=== PATIENT | male | born 1990 | race Caucasian/White ===

== ENCOUNTER 2016-06-11 19:12 | Emergency (ER) | payer MEDICAID ==
--- NOTE | 2016-06-11 20:23 | EDM.PDOC ---
ED HPI GI/ABDOMINAL - General Chief Complaint: Abdominal Pain Stated Complaint: HAS NOT BE ABLE TO EAT FOR OVER A WEEK Time Seen by Provider: 06/11/16 20:10 Source: Reports: Patient, RN notes reviewed History Limitations: Reports: No limitations - History of Present Illness INITIAL COMMENTS - FREE TEXT/NARRATIVE: 25-year-old gentleman presents emergency Department with a complaint of left upper quadrant pain he states he's had abdominal pain on and off for the last 5 or 6 days, pain will get very intense and then resolve he denies any diarrhea fever shortness of breath. Denies any abdominal surgeries,no history of diabetes mellitus as his blood sugar has not been in great control in the morning he usually runs about 350 sugars become controlled in the afternoon - Related Data Allergies/ADRs: Allergies Allergy/AdvReac Type Severity Reaction Status Date / Time amoxicillin Allergy Hives Verified 06/11/16 19:47 cephalexin monohydrate Allergy Swollen Verified 06/11/16 19:47 [From Keflex] Tongue Penicillins Allergy Hives Verified 06/11/16 19:47 Home Meds: Home Meds Insulin Detemir [Levemir Flextouch] 70 units SUBCUT BEDTIME 04/01/15 [History] Dextroamphetamine/Amphetamine [Adderall Xr 20 mg Capsule] 25 mg PO DAILY [History] Insulin Aspart [NovoLOG] 25 units SUBCUT TIDMEALS 06/11/16 [History] Lisinopril 5 mg PO DAILY 06/11/16 [History] Pravastatin [Pravachol] 10 mg PO BEDTIME 06/11/16 [History] SUMAtriptan Succinate [Imitrex] 100 mg PO BID PRN 06/11/16 [History] Past Medical History Cardiovascular History: Reports: Arrhythmia, High cholesterol Neurological History: Reports: Migraines, Neuropathy, diabetic Psychiatric History: Reports: ADHD, Anxiety Endocrine/Metabolic History: Reports: Diabetes, type I, Diabetes, type II - Infectious Disease History Infectious Disease History: Reports: Chicken pox Social & Family History - Tobacco Use Smoking Status *Q: Never Smoker - Caffeine Use Caffeine Use: Reports: Soda - Recreational Drug Use Recreational Drug Use: No Recreational Drug Type: Reports: Marijuana/Hashish Recreational Drug Use Frequency: Rarely ED ROS GENERAL - Review of Systems Review Of Systems: See Below Constitutional: Denies: fever, chills HEENT: Reports: No symptoms Respiratory: Reports: No Symptoms Cardiovascular: Reports: No symptoms GI/Abdominal: Reports: Abdominal pain, Flatus. Denies: Diarrhea, Nausea, Vomiting : Reports: no symptoms Musculoskeletal: Reports: no symptoms ED EXAM, GI/ABD - Physical Exam Exam: See Below Text/Narrative:: General:male, not in any distress, alert and oriented x3 HEENT: head is atraumatic normocephalic, eyes pupils equal round reactive to light and accommodation sclera clear no conjunctivitis appreciated. Ears tympanic membranes clear and nguyễn landmarks and light reflex are present bilaterally canals are clear. Nose no septal deviation, nares are clear, no blood present. Mouth mucosa is moist and pink no erythema or exudate noted in soft palate, tongue is midline uvula is midline, dentition is intact. Neck: Supple no thyromegaly no tracheal deviation. Nodes: Cervical nodes subclavicular nodes nontender no palpable lymphadenopathy noted. Lungs: clear to auscultation bilaterally with symmetrical respirations, no adventitious noise appreciated. CV: Regular rate and rhythm S1 and S2 appreciated no murmurs rubs or gallops noted. Abdomen: Soft, mild tenderness to palpation in the left upper quadrant, no palpable masses or organomegaly appreciated, no distention no guarding bowel sounds are present, Neuro: Cranial nerves II through XII grossly intact Skin: Warm and dry, intact Extremities: No lower extremity edema appreciated, Course - Vital Signs Last Recorded V/S: Last Vital Signs Temp 97.5 F 06/11/16 21:19 Pulse 78 06/11/16 23:01 Resp 20 06/11/16 23:01 BP 127/60 06/11/16 23:01 Pulse Ox 99 06/11/16 23:01 - Orders/Labs/Meds Orders: Active Orders 24 hr Category Date Time Status Peripheral IV Care [RC] . DIRECTED Care 06/11/16 21:41 Active Abdomen Pelvis w Cont [CT] Stat Exams 06/11/16 21:41 Taken Sodium Chloride 0.9% [Normal Saline] 1,000 ml Med 06/11/16 21:45 Active IV ASDIRECTED Sodium Chloride 0.9% [Saline Flush] Med 06/11/16 21:41 Active 10 ml FLUSH ASDIRECTED PRN Peripheral IV Insertion Adult [OM.PC] Urgent Oth 06/11/16 21:41 Ordered Medication Orders Sodium Chloride (Normal Saline) 1,000 mls @ 999 mls/hr IV ASDIRECTED SHUN Last Admin: 06/11/16 21:48 Dose: 999 mls/hr Sodium Chloride (Saline Flush) 10 ml FLUSH ASDIRECTED PRN PRN Reason: Keep Vein Open Last Admin: 06/11/16 21:48 Dose: 10 ml Labs: Laboratory Tests 06/11/16 06/11/16 06/11/16 Range/Units 20:32 20:32 20:32 WBC 6.8 (4.5-11.0) K/uL RBC 5.41 (4.30-5.90) M/uL Hgb 15.7 H (12.0-15.0) g/dL Hct 42.3 (40.0-54.0) % MCV 78 L (80-98) fL MCH 29 (27-31) pg MCHC 37 H (32-36) % Plt Count 200 (150-400) K/uL Add Manual Diff Yes Neutrophils % (Manual) 44 (36-66) % Band Neutrophils % 5 (5-11) % Lymphocytes % (Manual) 44 (24-44) % Monocytes % (Manual) 7 H (2-6) % Polychromasia Sodium 137 L (140-148) mmol/L Potassium 4.0 (3.6-5.2) mmol/L Chloride 98 L (100-108) mmol/L Carbon Dioxide 28 (21-32) mmol/L Anion Gap 15.0 H (5.0-14.0) mmol/L BUN 17 (7-18) mg/dL Creatinine 1.0 (0.8-1.3) mg/dL Est Cr Clr Drug Dosing 154.67 mL/min Estimated GFR (MDRD) > 60 (>60) Glucose 345 H (74-106) mg/dL Lactic Acid 1.3 (0.4-2.0) mmol/L Calcium 9.0 (8.5-10.1) mg/dL Total Bilirubin 0.9 (0.2-1.0) mg/dL AST 20 (15-37) U/L ALT 46 (12-78) U/L Alkaline Phosphatase 62 (46-116) U/L Total Protein 7.4 (6.4-8.2) g/dL Albumin 3.9 (3.4-5.0) g/dL Globulin 3.5 (2.3-3.5) g/dL Albumin/Globulin Ratio 1.1 L (1.2-2.2) Lipase 72 L (73-393) U/L Urine Color Urine Appearance Urine pH (4.5-8.0) Ur Specific [place] (1.008-1.030) Urine Protein (NEGATIVE) mg/dL Urine Glucose (UA) (NEGATIVE) mg/dL Urine Ketones (NEGATIVE) mg/dL Urine Occult Blood (NEGATIVE) Urine Nitrite (NEGAITVE) Urine Bilirubin (NEGATIVE) Urine Urobilinogen (NORMAL) mg/dL Ur Leukocyte Esterase (NEGATIVE) Urine RBC (0-5) Urine WBC (0-5) Ur Epithelial Cells Amorphous Sediment Urine Bacteria Urine Mucus 06/11/16 Range/Units 21:53 WBC (4.5-11.0) K/uL RBC (4.30-5.90) M/uL Hgb (12.0-15.0) g/dL Hct (40.0-54.0) % MCV (80-98) fL MCH (27-31) pg MCHC (32-36) % Plt Count (150-400) K/uL Add Manual Diff Neutrophils % (Manual) (36-66) % Band Neutrophils % (5-11) % Lymphocytes % (Manual) (24-44) % Monocytes % (Manual) (2-6) % Polychromasia Sodium (140-148) mmol/L Potassium (3.6-5.2) mmol/L Chloride (100-108) mmol/L Carbon Dioxide (21-32) mmol/L Anion Gap (5.0-14.0) mmol/L BUN (7-18) mg/dL Creatinine (0.8-1.3) mg/dL Est Cr Clr Drug Dosing mL/min Estimated GFR (MDRD) (>60) Glucose (74-106) mg/dL Lactic Acid (0.4-2.0) mmol/L Calcium (8.5-10.1) mg/dL Total Bilirubin (0.2-1.0) mg/dL AST (15-37) U/L ALT (12-78) U/L Alkaline Phosphatase (46-116) U/L Total Protein (6.4-8.2) g/dL Albumin (3.4-5.0) g/dL Globulin (2.3-3.5) g/dL Albumin/Globulin Ratio (1.2-2.2) Lipase (73-393) U/L Urine Color Yellow Urine Appearance Clear Urine pH 5.0 (4.5-8.0) Ur Specific [place] 1.020 (1.008-1.030) Urine Protein 30 H (NEGATIVE) mg/dL Urine Glucose (UA) 1000 H (NEGATIVE) mg/dL Urine Ketones 15 H (NEGATIVE) mg/dL Urine Occult Blood Negative (NEGATIVE) Urine Nitrite Negative (NEGAITVE) Urine Bilirubin Negative (NEGATIVE) Urine Urobilinogen Normal (NORMAL) mg/dL Ur Leukocyte Esterase Negative (NEGATIVE) Urine RBC Not seen (0-5) Urine WBC 0-5 (0-5) Ur Epithelial Cells Few Amorphous Sediment Not seen Urine Bacteria Few Urine Mucus Few Meds: Medications Generic Name Dose Route Start Last Admin Trade Name Misty PRN Reason Stop Dose Admin Sodium Chloride 1,000 mls @ 999 mls/hr 06/11/16 21:45 06/11/16 21:48 Normal Saline IV 999 mls/hr ASDIRECTED SHUN Administration Sodium Chloride 10 ml 06/11/16 21:41 06/11/16 21:48 Saline Flush FLUSH 10 ml ASDIRECTED PRN Administration Keep Vein Open Discontinued Medications Generic Name Dose Route Start Last Admin Trade Name Misty PRN Reason Stop Dose Admin Sodium Chloride 70 mls @ 3 mls/sec 06/11/16 22:25 06/11/16 22:39 Normal Saline IV 06/11/16 22:26 3 mls/sec ASDIRECTED ONE Administration Iopamidol 150 ml 06/11/16 22:25 06/11/16 22:39 Isovue-300 (61%) IV 06/11/16 22:26 150 ml . DIRECTED PRN Administration RADIOLOGY EXAM Sodium Chloride 10 ml 06/11/16 22:25 06/11/16 22:39 Saline Flush FLUSH 06/11/16 22:26 10 ml . DIRECTED PRN Administration [id number] EXAM Departure - Departure Time of Disposition: 01:14 Disposition: Home, Self-Care 01 Condition: good Clinical Impression: Abdominal pain Qualifiers: Abdominal location: left upper quadrant Qualified Code(s): R10.12 - Left upper quadrant pain Forms: ED Department Discharge Additional Instructions: try stopping the lisinopril for a couple of days to see if you have improvement in abdominal, Please followup with your primary care provider in 3-5 days if not better, please call return to the emergency department with worsening of symptoms. - My Orders Last 24 Hours: My Active Orders 06/11/16 21:41 Peripheral IV Care [RC] . DIRECTED Abdomen Pelvis w Cont [CT] Stat Sodium Chloride 0.9% [Saline Flush] 10 ml FLUSH ASDIRECTED PRN Peripheral IV Insertion Adult [OM.PC] Urgent 06/11/16 21:45 Sodium Chloride 0.9% [Normal Saline] 1,000 ml IV ASDIRECTED - Assessment/Plan Last 24 Hours: My Active Orders 06/11/16 21:41 Peripheral IV Care [RC] . DIRECTED Abdomen Pelvis w Cont [CT] Stat Sodium Chloride 0.9% [Saline Flush] 10 ml FLUSH ASDIRECTED PRN Peripheral IV Insertion Adult [OM.PC] Urgent 06/11/16 21:45 Sodium Chloride 0.9% [Normal Saline] 1,000 ml IV ASDIRECTED Plan: Assessment Acuity = acute Site and laterality = left upper quadrant abdominal pain Etiology = unclear etiology Manifestations = none Location of injury = home Lab values = CBC, CMP, urinalysis unremarkable except for blood glucose elevated at 245 is hyperglycemia, CT scan shows no acute process Plan I did review lab work and CT scan results with him he has recently started lisinopril he's been on the medication for 2 weeks abdominal pain is listed as a side effect, he is to try coming off the medication for a couple of days see if there's any improvement in his abdominal pain otherwise follow up with primary care in 3-5 days for reevaluation Patient was in agreement with the plan all questions were answered, they were instructed to return to the emergency department or call for worsening symptoms. This note was dictated using [employer] voice recognition software please call with any questions.
[2016-06-11] MEDS ORDERED: Sodium Chloride 0.9% 10 ML Syringe FLUSH PRN ×2 (21:41→22:25)
[2016-06-11] MEDS ORDERED: Sodium Chloride 0.9% 1,000 ML IV SCH (21:45)
[2016-06-11] MEDS ORDERED: Iopamidol 612 MG/ML 150 ML Bottle IV PRN (22:25)
[2016-06-11 23:02] VITALS: BP 127/60
== END 2016-06-12 01:22 | disposition home or self-care (01) ==
LOC: JP.ED 19:12
DX: R10.12 Left upper quadrant pain (principal); E78.00 Pure hypercholesterolemia, unspecified; E11.9 Type 2 diabetes mellitus without complications; Z79.4 Long term (current) use of insulin; Z79.899 Other long term (current) drug therapy; Z88.0 Allergy status to penicillin; Z88.1 Allergy status to other antibiotic agents
CPT/HCPCS: 36415; 74177; 80053; 81001; 83605; 83690; 85025; 96360; 96361; 99284; J7030; J7040; J7050

== ENCOUNTER 2017-02-06 07:15 | Emergency (ER) | payer BC, MEDICAID ==
[2017-02-06] MEDS ORDERED: Ketorolac 60 MG/2 ML SDV IM ONE (07:52)
[2017-02-06] MEDS ORDERED: Cyclobenzaprine 10 MG Tab PO ONE (07:53)
--- NOTE | 2017-02-06 07:54 | EDM.PDOC ---
ED HPI GENERAL MEDICAL PROBLEM - General Chief Complaint: Back Pain or Injury Stated Complaint: KIDNEY & RECTAL PAIN Time Seen by Provider: 02/06/17 07:54 Source of Information: Reports: Patient History Limitations: Reports: No Limitations - History of Present Illness INITIAL COMMENTS - FREE TEXT/NARRATIVE: pt arrived with pain over the left buttock and coming to the front and groin area. He has pain that extends back to the buttock. He has tingling in his toes. Onset: Other ( came on over the last 2 days. ) Duration: Day(s):, Getting Worse Location: Reports: Back Associated Symptoms: Reports: No Other Symptoms Left Leg Pain Score (Numeric/FACES): 7 - Related Data Allergies Allergy/AdvReac Type Severity Reaction Status Date / Time amoxicillin Allergy Hives Verified 02/06/17 07:28 cephalexin monohydrate Allergy Swollen Verified 02/06/17 07:28 [From Keflex] Tongue Penicillins Allergy Hives Verified 02/06/17 07:28 sucralose Allergy Hives Verified 02/06/17 07:29 [From Splenda (sucralose)] Home Meds: Home Meds Insulin Detemir [Levemir Flextouch] 70 units SUBCUT BEDTIME 04/01/15 [History] Insulin Aspart [NovoLOG] 25 units SUBCUT TIDMEALS 06/11/16 [History] SUMAtriptan Succinate [Imitrex] 100 mg PO BID PRN 06/11/16 [History] Past Medical History HEENT History: Reports: Impaired Vision Cardiovascular History: Reports: Arrhythmia, High Cholesterol Musculoskeletal History: Reports: Fracture Neurological History: Reports: Migraines, Neuropathy, Diabetic Psychiatric History: Reports: ADHD, Anxiety Endocrine/Metabolic History: Reports: Diabetes, Type I, Diabetes, Type II - Infectious Disease History Infectious Disease History: Reports: Chicken Pox Social & Family History - Tobacco Use Smoking Status *Q: Never Smoker - Caffeine Use Caffeine Use: Reports: Soda - Recreational Drug Use Recreational Drug Use: No Recreational Drug Type: Reports: Marijuana/Hashish Recreational Drug Use Frequency: Rarely ED ROS GENERAL - Review of Systems Review Of Systems: See Below Constitutional: Reports: No Symptoms HEENT: Reports: No Symptoms Respiratory: Reports: No Symptoms Cardiovascular: Reports: No Symptoms Endocrine: Reports: No Symptoms GI/Abdominal: Reports: No Symptoms : Reports: No Symptoms Musculoskeletal: Reports: Other (pain in the left buttock and down the left leg. He has pain around the rectum and severe pain in the ankle ) ED EXAM,LOWER BACK PAIN/INJURY - Physical Exam Exam: See Below Text/Narrative:: pt arrived with pain in the left buttock and in the left thigh area. It comes around to the front. He has pain in the left groin. He has pain by the left rectal area. Exam Limited By: No Limitations General Appearance: Alert, Anxious Ears: Normal TMs Nose: Normal Inspection Throat/Mouth: Normal Inspection Head: Atraumatic Neck: Normal Inspection Respiratory/Chest: No Respiratory Distress Cardiovascular: Regular Rate, Rhythm GI/Abdominal: Soft, Non-Tender (Male) Exam: Deferred Rectal (Males) Exam: Deferred, Other (pt ias not having rectal control problems. ) Back Exam: Normal Inspection Extremities: Normal Inspection Neurological: Alert Course - Vital Signs Last Recorded V/S: Last Vital Signs Temp 36.0 C 02/06/17 07:37 Pulse 83 02/06/17 07:37 Resp 16 02/06/17 07:37 BP 130/76 02/06/17 07:37 Pulse Ox 98 02/06/17 07:37 - Orders/Labs/Meds Labs: Laboratory Tests 02/06/17 02/06/17 02/06/17 Range/Units 10:10 10:10 10:35 WBC 6.8 (4.5-11.0) K/uL RBC 5.54 (4.30-5.90) M/uL Hgb 16.1 H (12.0-15.0) g/dL Hct 43.7 (40.0-54.0) % MCV 79 L (80-98) fL MCH 29 (27-31) pg MCHC 37 H (32-36) % Plt Count 200 (150-400) K/uL Neut % (Auto) 64 (36-66) % Lymph % (Auto) 26 (24-44) % [place] % (Auto) 8 H (2-6) % Eos % (Auto) 2 (2-4) % Baso % (Auto) 0 (0-1) % Sodium 138 L (140-148) mmol/L Potassium 4.4 (3.6-5.2) mmol/L Chloride 101 (100-108) mmol/L Carbon Dioxide 29 (21-32) mmol/L Anion Gap 12.4 (5.0-14.0) mmol/L BUN 14 (7-18) mg/dL Creatinine 1.1 (0.8-1.3) mg/dL Est Cr Clr Drug Dosing 139.39 mL/min Estimated GFR (MDRD) > 60 (>60) Glucose 369 H (74-106) mg/dL Calcium 8.8 (8.5-10.1) mg/dL Total Bilirubin 0.8 (0.2-1.0) mg/dL AST 14 L (15-37) U/L ALT 23 (12-78) U/L Alkaline Phosphatase 52 (46-116) U/L Total Protein 6.2 L (6.4-8.2) g/dL Albumin 3.5 (3.4-5.0) g/dL Globulin 2.7 (2.3-3.5) g/dL Albumin/Globulin Ratio 1.3 (1.2-2.2) Urine Color Yellow Urine Appearance Clear Urine pH 5.0 (4.5-8.0) Ur Specific [place] 1.015 (1.008-1.030) Urine Protein 30 H (NEGATIVE) mg/dL Urine Glucose (UA) 1000 H (NEGATIVE) mg/dL Urine Ketones Negative (NEGATIVE) mg/dL Urine Occult Blood Negative (NEGATIVE) Urine Nitrite Negative (NEGAITVE) Urine Bilirubin Negative (NEGATIVE) Urine Urobilinogen Normal (NORMAL) mg/dL Ur Leukocyte Esterase Negative (NEGATIVE) Urine RBC 0-5 (0-5) Urine WBC 0-5 (0-5) Ur Epithelial Cells Rare Amorphous Sediment Not seen Urine Bacteria Not seen Urine Mucus Not seen Meds: Medications Discontinued Medications Generic Name Dose Route Start Last Admin Trade Name Freq PRN Reason Stop Dose Admin Cyclobenzaprine HCl 10 mg 02/06/17 07:53 02/06/17 07:58 Flexeril PO 02/06/17 07:54 10 mg ONETIME ONE Administration Insulin Human Lispro 8 unit 02/06/17 16:30 Humalog SUBCUT BIDAC SHUN Insulin Human Regular 35 unit 02/06/17 09:05 02/06/17 09:47 Novolin R SUBCUT 02/06/17 09:06 35 units ONETIME ONE Administration Protocol Insulin Human Regular 8 unit 02/06/17 10:46 02/06/17 11:01 Novolin R SUBCUT 02/06/17 10:47 8 units ONETIME ONE Administration Protocol Insulin Human Regular 20 unit 02/06/17 11:52 Novolin R SUBCUT 02/06/17 11:53 ONETIME ONE Protocol Ketorolac Tromethamine 60 mg 02/06/17 07:52 02/06/17 07:58 Toradol IM 02/06/17 07:53 60 mg ONETIME ONE Administration Oxycodone/Acetaminophen 1 tab 02/06/17 11:15 02/06/17 11:32 Percocet 325-5 Mg PO 02/06/17 11:16 1 tab ONETIME ONE Administration - Re-Assessments/Exams Free Text/Narrative Re-Assessment/Exam: 02/06/17 10:41 pt had a lumbar spine--MRI which was neg for disc disease. He has not been controlling his sugars well. His bs was greater than 400. He Has known neuropathy in his left foot. He has the pain described above with a neg MRI. He needs to work hard to get control of his bs. 02/06/17 11:53 Pt had lunch and his bs is 429. He has had a total of 43 units of regular insulin and will add another 20 units of regular insulin subq. 02/06/17 12:04 pt needs close followup with his regular provider to get his diabetes under controlo Departure - Departure Time of Disposition: 11:00 Disposition: Home, Self-Care 01 Condition: Fair Clinical Impression: Hyperglycemia, Neuropathy - Discharge Information Referrals: PCP,None [Primary Care Provider] - Forms: ED Department Discharge Care Plan Goals: no work today, Pt needs to see his regular provider in [place]. He needs to get his bs under control to prevwnt further neuropathy. 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 gabapentin 300mg tid Heat or cold to the left buttock area.
--- NOTE | 2017-02-06 08:34 | CR ---
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 Patient is cleared for MRI.
[2017-02-06] MEDS ORDERED: Insulin Regular, Human 100 Units/ML 10 ML Vial SUBCUT ONE ×3 (09:05→11:52)
--- NOTE | 2017-02-06 09:50 | MR ---
Lumbar Spine Comp wo Cont INDICATION: pain in left leg. COMPARISON: None. FINDINGS: 5 lumbar type vertebral bodies are assumed. Normal T1 marrow signal. Conus medullaris lies in anatomic position. Vertebral body and disc space height is well-maintained. No neural foraminal, lateral recess, or spin al canal narrowing. Exam otherwise negative. IMPRESSION: Negative MRI of the lumbar spine.
[2017-02-06] MEDS ORDERED: Acetaminophen/oxyCODONE 325-5 MG Tab PO ONE (11:15)
[2017-02-06 12:04] VITALS: BP 103/46
[2017-02-06] MEDS ORDERED: Insulin Lispro 100 Units/ML 3 ML Vial SUBCUT SCH (16:30)
== END 2017-02-06 12:43 | disposition home or self-care (01) ==
LOC: JP.ED 07:15
DX: E11.65 Type 2 diabetes mellitus with hyperglycemia (principal); E11.40 Type 2 diabetes mellitus with diabetic neuropathy, unspecified; G43.909 Migraine, unspecified, not intractable, without status migrainosus; Z79.4 Long term (current) use of insulin; Z88.0 Allergy status to penicillin; Z88.1 Allergy status to other antibiotic agents
CPT/HCPCS: 36415; 70030; 72148; 80053; 81001; 82962; 85025; 96374; 99284; A9270; J1885

== ENCOUNTER 2017-02-14 03:27 | Emergency (ER) | payer BC, MEDICAID ==
[2017-02-14] MEDS ORDERED: Insulin Detemir 100 Units/ML 3 ML Pen SUBCUT ONE (04:06)
--- NOTE | 2017-02-14 04:26 | EDM.PDOC ---
ED HPI GENERAL MEDICAL PROBLEM - General Chief Complaint: Diabetic Complaint Stated Complaint: BLOOD SUGAR OFF Time Seen by Provider: 02/14/17 04:00 Source of Information: Reports: Patient History Limitations: Reports: No Limitations - History of Present Illness INITIAL COMMENTS - FREE TEXT/NARRATIVE: 26-year-old male who has been diabetic for the last several years is in with elevated glucose levels. He ran out of his Levemir 2 days ago. Yesterday his glucose was in the 70s, tonight however read as "high" so he took extra NovoLog. He has a frontal headache but no fever, no nausea or vomiting, no hyperventilation, no diarrhea. No cough or shortness of breath. In the past Dr. Lo at the clinic is been his physician but he didn't feel his diabetes was being treated seriously enough so he switched to a physician in [place]. He is having trouble getting appointments with this new physician and doesn't have transportation. Severity: Moderate Associated Symptoms: Reports: Headaches Generalized Pain Score (Numeric/FACES): 4 - Related Data Allergies Allergy/AdvReac Type Severity Reaction Status Date / Time amoxicillin Allergy Hives Verified 02/14/17 03:35 cephalexin monohydrate Allergy Swollen Verified 02/14/17 03:35 [From Keflex] Tongue Penicillins Allergy Hives Verified 02/14/17 03:35 sucralose Allergy Hives Verified 02/14/17 03:35 [From Splenda (sucralose)] Home Meds: Home Meds Insulin Detemir [Levemir Flextouch] 70 units SUBCUT BEDTIME 04/01/15 [History] Insulin Aspart [NovoLOG] 25 units SUBCUT TIDMEALS 06/11/16 [History] SUMAtriptan Succinate [Imitrex] 100 mg PO BID PRN 06/11/16 [History] Gabapentin [Neurontin] 300 mg PO TID 02/14/17 [History] Past Medical History HEENT History: Reports: Allergic Rhinitis, Impaired Vision Cardiovascular History: Reports: Arrhythmia, High Cholesterol Gastrointestinal History: Reports: Chronic Diarrhea, GERD Genitourinary History: Reports: UTI, Recurrent Musculoskeletal History: Reports: Fracture Neurological History: Reports: Concussion, Migraines, Neuropathy, Diabetic Psychiatric History: Reports: ADHD, Anxiety Endocrine/Metabolic History: Reports: Diabetes, Type I, Diabetes, Type II - Infectious Disease History Infectious Disease History: Reports: Chicken Pox Social & Family History - Tobacco Use Smoking Status *Q: Never Smoker - Caffeine Use Caffeine Use: Reports: Soda - Recreational Drug Use Recreational Drug Use: Yes Drug Use in Last 12 Months: No Recreational Drug Type: Reports: Marijuana/Hashish Recreational Drug Use Frequency: Rarely ED ROS GENERAL - Review of Systems Review Of Systems: See Below Constitutional: Denies: Fever, Chills, Malaise HEENT: Denies: Vision Change Respiratory: Denies: Shortness of Breath Cardiovascular: Denies: Chest Pain GI/Abdominal: Denies: Abdominal Pain : Reports: No Symptoms (Was placed on a medicine to protect his kidneys, head give him a stomachache so he stopped it) Neurological: Reports: Headache, Paresthesia (Feels he is developing some diabetic neuropathy, especially of the feet) ED EXAM GENERAL NO PERIP PULSE - Physical Exam Exam: See Below Exam Limited By: No Limitations General Appearance: Alert, No Apparent Distress, Other (Initially the patient was very nonchalant about the lack of care with his diabetes, but after it was impressed upon him the importance of caring for his diabetes he became tearful) Eye Exam: Bilateral Eye: EOMI, PERRL Respiratory/Chest: No Respiratory Distress, Lungs Clear Cardiovascular: Regular Rate, Rhythm GI/Abdominal: Soft Extremities: No: Pedal Edema Neurological: Alert, Oriented Psychiatric: Flat Affect, Tearful Skin Exam: Warm, Dry Course - Vital Signs Last Recorded V/S: Last Vital Signs Temp 97.7 F 02/14/17 03:46 Pulse 97 02/14/17 03:46 Resp 16 02/14/17 03:46 BP 145/91 H 02/14/17 03:46 Pulse Ox 99 02/14/17 03:46 - Orders/Labs/Meds Meds: Medications Discontinued Medications Generic Name Dose Route Start Last Admin Trade Name Freq PRN Reason Stop Dose Admin Insulin Detemir 50 unit 02/14/17 04:06 02/14/17 04:29 Levemir SUBCUT 02/14/17 04:07 50 units ONETIME ONE Administration - Re-Assessments/Exams Free Text/Narrative Re-Assessment/Exam: 02/14/17 04:23 [id number] glucose was obtained which was 260. Patient was given 50 units of Levemir subcutaneous and an additional 50 units to take tomorrow night. I also gave him a prescription so he can resume his 70 units of Levemir at night and strongly encouraged him to see Gregory Casillas for diabetic management by the end of the week. Departure - Departure Time of Disposition: 05:11 Disposition: Home, Self-Care 01 Condition: Good Clinical Impression: Hyperglycemia - Discharge Information Instructions: Tips for Eating Away From Home If You Have Diabetes, Diabetes and Sick Day Management, Basic Carbohydrate Counting for Diabetes Mellitus, Type 2 Diabetes Mellitus, Adult, [id number], Diabetes and Exercise Referrals: PCP,None [Primary Care Provider] - Forms: ED Department Discharge Care Plan Goals: Start documenting your glucose levels 3 times a day and the amount of NovoLog you are taking to cover. Resume your 70 units of Levemir at night, and call the clinic to see if Gregory Casillas can take care of your diabetes and hopefully see you by the end of the week. Return to the emergency room if worsening or concerns.
[2017-02-14 04:52] VITALS: BP 145/91
== END 2017-02-14 05:12 | disposition home or self-care (01) ==
LOC: JP.ED 03:27
DX: E11.65 Type 2 diabetes mellitus with hyperglycemia (principal); E11.40 Type 2 diabetes mellitus with diabetic neuropathy, unspecified; E78.00 Pure hypercholesterolemia, unspecified; Z79.4 Long term (current) use of insulin; Z88.1 Allergy status to other antibiotic agents; Z88.0 Allergy status to penicillin; Z91.09 Other allergy status, other than to drugs and biological substances
CPT/HCPCS: 82962; 99284; A9270

== ENCOUNTER 2017-05-10 18:53 | Emergency (ER) | payer BC, MEDICAID ==
[2017-05-10 19:51] VITALS: BP 147/87
[2017-05-10] MEDS ORDERED: Ketorolac 60 MG/2 ML SDV IM ONE (20:55)
--- NOTE | 2017-05-10 21:07 | EDM.PDOC ---
ED HPI GENERAL MEDICAL PROBLEM - General Chief Complaint: Back Pain or Injury Stated Complaint: SHARP PAIN IN BACK Time Seen by Provider: 05/10/17 19:25 Source of Information: Reports: Patient History Limitations: Reports: No Limitations - History of Present Illness INITIAL COMMENTS - FREE TEXT/NARRATIVE: Left buttocks and leg pain: This is a 26-year-old male presents to emergency room with complaints of left leg and buttocks pain. He reports was going to the bathroom having a bowel movement when he has sudden onset of pain in the left buttocks radiating down the left leg. This has been very painful for a few hours and is similar to a previous episode of sciatica. He is now here for evaluation. 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 Pain Score (Numeric/FACES): 6 - Related Data Allergies Allergy/AdvReac Type Severity Reaction Status Date / Time amoxicillin Allergy Hives Verified 05/10/17 20:00 cephalexin monohydrate Allergy Swollen Verified 05/10/17 20:00 [From Keflex] Tongue Penicillins Allergy Hives Verified 05/10/17 20:00 sucralose Allergy Hives Verified 05/10/17 20:00 [From Splenda (sucralose)] Home Meds: Home Meds Insulin Detemir [Levemir Flextouch] 70 units SUBCUT BEDTIME 04/01/15 [History] Insulin Aspart [NovoLOG] 0 - 33 units SUBCUT TIDMEALS 06/11/16 [History] SUMAtriptan Succinate [Imitrex] 100 mg PO BID PRN 06/11/16 [History] Past Medical History HEENT History: Reports: Allergic Rhinitis, Impaired Vision Cardiovascular History: Reports: Arrhythmia, High Cholesterol Gastrointestinal History: Reports: Chronic Diarrhea, GERD Genitourinary History: Reports: UTI, Recurrent Musculoskeletal History: Reports: Fracture Neurological History: Reports: Concussion, Migraines, Neuropathy, Diabetic Psychiatric History: Reports: ADHD, Anxiety Endocrine/Metabolic History: Reports: Diabetes, Type I, Diabetes, Type II - Infectious Disease History Infectious Disease History: Reports: Chicken Pox Social & Family History - Tobacco Use Smoking Status *Q: Current Some Day Smoker Years of Tobacco use: 10 Packs/Tins Daily: 0.1 - Caffeine Use Caffeine Use: Reports: Soda - Recreational Drug Use Recreational Drug Use: No Drug Use in Last 12 Months: No Recreational Drug Type: Reports: Marijuana/Hashish Recreational Drug Use Frequency: Rarely - Living Situation & Occupation Living situation: Reports: Single Occupation: Employed ED ROS GENERAL - Review of Systems Review Of Systems: See Below Constitutional: Reports: Other (Painful left Buttocks and leg.) HEENT: Reports: No Symptoms Respiratory: Reports: No Symptoms Cardiovascular: Reports: No Symptoms Endocrine: Reports: High Glucose, Other (Has diabetes type 2 with insulin management 4 years.) GI/Abdominal: Reports: No Symptoms : Reports: No Symptoms Musculoskeletal: Reports: Back Pain, Leg Pain Skin: Reports: No Symptoms Neurological: Reports: No Symptoms Psychiatric: Reports: No Symptoms Hematologic/Lymphatic: Reports: No Symptoms Immunologic: Reports: No Symptoms ED EXAM, GENERAL - Physical Exam Exam: See Below Exam Limited By: No Limitations General Appearance: Alert, WD/WN, No Apparent Distress Eye Exam: Bilateral Eye: Normal Inspection Ears: Normal External Exam Nose: Normal Inspection, Normal Mucosa, No Blood Throat/Mouth: Normal Inspection, Normal Lips, Normal Teeth, Normal Gums, Normal Oropharynx, Normal Voice, No Airway Compromise Head: Atraumatic, Normocephalic Neck: Normal Inspection, Supple, Non-Tender, Full Range of Motion Respiratory/Chest: No Respiratory Distress, Lungs Clear, Normal Breath Sounds, No Accessory Muscle Use, Chest Non-Tender Cardiovascular: Normal Peripheral Pulses, Regular Rate, Rhythm, No Edema, No Gallop, No JVD, No Murmur, No Rub GI/Abdominal: Normal Bowel Sounds, Soft, Non-Tender, No Organomegaly, No Distention, No Abnormal Bruit, No Mass, Other (No flank pain is noted) (Male) Exam: Deferred Rectal (Males) Exam: Deferred Back Exam: Normal Inspection, Full Range of Motion, Muscle Spasm (Muscles are tense and nodded to low back lumbar to sacral spine. Radiates to left Buttocks and 2 leg to ankle.) Extremities: Normal Inspection, Normal Range of Motion, No Pedal Edema, Leg Pain (Noted painful to anterior and posterior thigh.) Neurological: Alert, Oriented, Normal Cognition, Normal Gait, Normal Reflexes, No Motor/Sensory Deficits Psychiatric: Normal Affect, Normal Mood Skin Exam: Warm, Dry, Intact, Normal Color, No Rash Lymphatic: No Adenopathy Course - Vital Signs Last Recorded V/S: Last Vital Signs Temp 36.0 C 05/10/17 20:08 Pulse 90 05/10/17 20:08 Resp 16 05/10/17 20:08 BP 147/87 H 05/10/17 20:08 Pulse Ox 96 05/10/17 20:08 - Orders/Labs/Meds Labs: Laboratory Tests 05/10/17 Range/Units 20:23 Urine Color Yellow Urine Appearance Clear Urine pH 6.5 (4.5-8.0) Ur Specific [place] 1.015 (1.008-1.030) Urine Protein 30 H (NEGATIVE) mg/dL Urine Glucose (UA) 1000 H (NEGATIVE) mg/dL Urine Ketones 15 H (NEGATIVE) mg/dL Urine Occult Blood Negative (NEGATIVE) Urine Nitrite Negative (NEGAITVE) Urine Bilirubin Negative (NEGATIVE) Urine Urobilinogen Normal (NORMAL) mg/dL Ur Leukocyte Esterase Negative (NEGATIVE) Urine RBC 0-5 (0-5) Urine WBC 0-5 (0-5) Ur Epithelial Cells Rare Amorphous Sediment Not seen Urine Bacteria Not seen Urine Mucus Not seen Meds: Medications Discontinued Medications Generic Name Dose Route Start Last Admin Trade Name Freq PRN Reason Stop Dose Admin Ketorolac Tromethamine 60 mg 05/10/17 20:55 05/10/17 21:03 Toradol IM 05/10/17 20:56 60 mg ONETIME ONE Administration - Re-Assessments/Exams Free Text/Narrative Re-Assessment/Exam: 05/10/17 21:42 Even Toradol 60 mg in the emergency room, will plan to discharge home with scripts for oxycodone, Flexeril and Naprosyn. Advised no work for next 1-2 days avoid any bending lifting or twisting follow-up with primary care for recheck, sooner if not improved or symptoms worsen Departure - Departure Time of Disposition: 21:16 Disposition: Home, Self-Care 01 Condition: Good Clinical Impression: Acute sciatica - Discharge Information Instructions: Sciatica, [id number] Referrals: PCP,None [Primary Care Provider] - Forms: ED Department Discharge Care Plan Goals: left Sciatica -Toradol 60mg IM -Percocet 5-325mg; take 1 by mouth. Every 4-6 hours when necessary pain -Flexeril 10 mg 1 every 8 hours when necessary muscle spasm -Naproxen 500 mg 1 by mouth twice a day 2 days then when necessary every 12 hours Advised to rest, no lifting over 10 pounds, no bending, twisting, avoid prolonged standing or sitting. Please follow-up with primary care provider on Monday for recheck if not improved or worse sooner if symptoms worsen - Problem List & Annotations (1) Acute sciatica SNOMED Code(s): 313489112 Code(s): M54.30 - SCIATICA, UNSPECIFIED SIDE Status: Acute Priority: High - Problem List Review Problem List Initiated/Reviewed/Updated: Yes - Assessment/Plan Plan: left Sciatica -Toradol 60mg IM -Percocet 5-325mg; take 1 by mouth. Every 4-6 hours when necessary pain -Flexeril 10 mg 1 every 8 hours when necessary muscle spasm -Naproxen 500 mg 1 by mouth twice a day 2 days then when necessary every 12 hours Advised to rest, no lifting over 10 pounds, no bending, twisting, avoid prolonged standing or sitting. Please follow-up with primary care provider on Monday for recheck if not improved or worse sooner if symptoms worsen
== END 2017-05-10 21:16 | disposition home or self-care (01) ==
LOC: JP.ED 18:53
DX: M54.42 Lumbago with sciatica, left side (principal); E78.00 Pure hypercholesterolemia, unspecified; F17.210 Nicotine dependence, cigarettes, uncomplicated; Z88.1 Allergy status to other antibiotic agents; Z88.0 Allergy status to penicillin
CPT/HCPCS: 81001; 96372; 99284; J1885

== ENCOUNTER 2017-12-24 21:30 | Emergency (ER) | payer BC, MEDICAID ==
[2017-12-24 21:54] VITALS: BP 129/84
--- NOTE | 2017-12-24 22:31 | EDM.PDOC ---
ED HPI GENERAL MEDICAL PROBLEM - General Chief Complaint: Chest Pain Stated Complaint: HEART ISSUES Time Seen by Provider: 12/24/17 22:15 Source of Information: Reports: Patient, Old Records, RN History Limitations: Reports: No Limitations - History of Present Illness INITIAL COMMENTS - FREE TEXT/NARRATIVE: 27 yo male here with central chest pain tonight. Is getting better. Has been monitored for episodes of tachycardia and his cardiology appt is pending. Was told if he ever got chest pain to go to the ER. Denies SOB, nausea, or diaphoresis. Has a 4 yr history of DM. No self tx tonight. Onset: Today Onset Date: 12/24/17 Duration: Hour(s):, Improving Location: Reports: Chest Quality: Reports: Dull Severity: Mild Improves with: Reports: Other (time) Worsens with: Reports: None Context: Reports: Other (paroxysmal episodes of tachycardia, DM) Associated Symptoms: Reports: No Other Symptoms - Related Data Allergies Allergy/AdvReac Type Severity Reaction Status Date / Time amoxicillin Allergy Hives Verified 12/24/17 21:43 cephalexin monohydrate Allergy Swollen Verified 12/24/17 21:43 [From Keflex] Tongue Penicillins Allergy Hives Verified 12/24/17 21:43 sucralose Allergy Hives Verified 12/24/17 21:43 [From Splenda (sucralose)] Home Meds: Home Meds Insulin Detemir [Levemir Flextouch] 70 units SUBCUT BEDTIME 04/01/15 [History] Insulin Aspart [NovoLOG] 0 - 33 units SUBCUT TIDMEALS 06/11/16 [History] SUMAtriptan Succinate [Imitrex] 100 mg PO BID PRN 06/11/16 [History] Dulaglutide [Trulicity] 1 appful SUBCUT WEEKLY 12/24/17 [History] Insulin Aspart [NovoLOG] 12/24/17 [History] Insulin Glargine,Hum.Rec.Anlog [Toujeo Solostar] 12/24/17 [History] Rizatriptan Benzoate [Rizatriptan] 12/24/17 [History] Topiramate 12/24/17 [History] Past Medical History HEENT History: Reports: Allergic Rhinitis, Impaired Vision Cardiovascular History: Reports: Arrhythmia, High Cholesterol Gastrointestinal History: Reports: Chronic Diarrhea, GERD Genitourinary History: Reports: UTI, Recurrent Musculoskeletal History: Reports: Fracture Neurological History: Reports: Concussion, Migraines, Neuropathy, Diabetic Psychiatric History: Reports: ADHD, Anxiety Endocrine/Metabolic History: Reports: Diabetes, Type I, Diabetes, Type II - Infectious Disease History Infectious Disease History: Reports: Chicken Pox Social & Family History - Tobacco Use Smoking Status *Q: Never Smoker - Caffeine Use Caffeine Use: Reports: Soda - Living Situation & Occupation Living situation: Reports: Single Occupation: Employed ED ROS GENERAL - Review of Systems Review Of Systems: See Below Constitutional: Reports: No Symptoms HEENT: Reports: No Symptoms Respiratory: Reports: No Symptoms Cardiovascular: Reports: Chest Pain Endocrine: Reports: No Symptoms GI/Abdominal: Reports: No Symptoms : Reports: No Symptoms Musculoskeletal: Reports: No Symptoms Skin: Reports: No Symptoms Neurological: Reports: No Symptoms ED EXAM, GENERAL - Physical Exam Exam: See Below Exam Limited By: No Limitations General Appearance: Alert, WD/WN, No Apparent Distress Eye Exam: Bilateral Eye: Normal Inspection Ears: Normal External Exam, Normal Canal, Hearing Grossly Normal Ear Exam: Bilateral Ear: Auricle Normal, Canal Normal Nose: Normal Inspection, Normal Mucosa, No Blood Throat/Mouth: Normal Inspection, Normal Lips, Normal Voice, No Airway Compromise Head: Atraumatic, Normocephalic Neck: Normal Inspection Respiratory/Chest: No Respiratory Distress, Lungs Clear, Normal Breath Sounds, No Accessory Muscle Use Cardiovascular: Regular Rate, Rhythm, No Edema, Other (sternal tenderness present) GI/Abdominal: Normal Bowel Sounds, Soft, Non-Tender, No Distention Back Exam: Normal Inspection. No: CVA Tenderness (R), CVA Tenderness (L) Extremities: Normal Inspection, Normal Range of Motion, Non-Tender, No Pedal Edema Neurological: Alert, Oriented, CN II-XII Intact, Normal Cognition, No Motor/ Sensory Deficits Psychiatric: Normal Affect, Normal Mood Skin Exam: Warm, Dry, Intact, Normal Color, No Rash Lymphatic: No Adenopathy EKG INTERPRETATION EKG Date: 12/24/17 Time: 22:25 Rhythm: NSR [place]: Normal P-Wave: Present QRS: Normal ST-T: Normal QT: Normal Comparison: NA - No Prior EKG Course - Vital Signs Last Recorded V/S: Last Vital Signs Temp 36.0 C 12/24/17 21:53 Pulse 89 12/24/17 21:53 Resp 14 12/24/17 21:53 BP 129/84 12/24/17 21:53 Pulse Ox 97 12/24/17 21:53 - Orders/Labs/Meds Orders: Active Orders 24 hr Category Date Time Status Cardiac Monitoring [RC] .As Directed Care 12/24/17 22:18 Active EKG Documentation Completion [RC] ASDIRECTED Care 12/24/17 22:18 Active EKG 12 Lead [EK] Routine Ther 12/24/17 22:18 Ordered Departure - Departure Time of Disposition: 22:37 Disposition: Home, Self-Care 01 Condition: Good Clinical Impression: Acute costochondritis Instructions: Costochondritis, [id number] Referrals: Gregory Casillas NP [Primary Care Provider] - Forms: ED Department Discharge Additional Instructions: Ibuprofen 400 mg every 6 hrs with food as needed. F/U with cardiology as planned. Return here if worse. - My Orders Last 24 Hours: My Active Orders 12/24/17 22:18 Cardiac Monitoring [RC] .As Directed EKG Documentation Completion [RC] ASDIRECTED EKG 12 Lead [EK] Routine - Assessment/Plan Last 24 Hours: My Active Orders 12/24/17 22:18 Cardiac Monitoring [RC] .As Directed EKG Documentation Completion [RC] ASDIRECTED EKG 12 Lead [EK] Routine
== END 2017-12-24 22:47 | disposition home or self-care (01) ==
LOC: JP.ED 21:30
DX: M94.0 Chondrocostal junction syndrome [Tietze] (principal); E10.9 Type 1 diabetes mellitus without complications; E78.00 Pure hypercholesterolemia, unspecified; Z88.1 Allergy status to other antibiotic agents; Z88.0 Allergy status to penicillin; Z88.8 Allergy status to other drugs, medicaments and biological substances
CPT/HCPCS: 93005; 99284-25

== ENCOUNTER 2018-04-20 11:15 | Emergency (ER) | payer MEDICAID ==
[2018-04-20 11:31] VITALS: BP 133/76
--- NOTE | 2018-04-20 13:30 | EDM.PDOC ---
ED HPI GENERAL MEDICAL PROBLEM - General Chief Complaint: Cardiovascular Problem Stated Complaint: HEART PALIPATIONS Time Seen by Provider: 04/20/18 11:50 Source of Information: Reports: Patient History Limitations: Reports: No Limitations - History of Present Illness INITIAL COMMENTS - FREE TEXT/NARRATIVE: This young man had a cardiac ablation done about 3 days ago that was at [facility] in [place]. He has a history of recurrent SVT. That was shown on a monitor which had been placed clinic. Last night he had an episode of palpitations off-and-on lasting 10 minutes or so. Also had some vague pain in the chest for 10 or 15 minutes. Today there are no more palpitations but he has sort of a vague soreness in his chest he said especially when he rolls on his belly. Doesn't really hurt to breathe however he hasn't taken anything for the pain. He's taking Eliquis because he had an episode of atrial fibrillation requiring cardioversion at the time of his ablation Chest Pain Score (Numeric/FACES): 3 - Related Data Allergies Allergy/AdvReac Type Severity Reaction Status Date / Time amoxicillin Allergy Hives Verified 04/20/18 11:31 cephalexin monohydrate Allergy Swollen Verified 04/20/18 11:31 [From Keflex] Tongue Penicillins Allergy Hives Verified 04/20/18 11:31 sucralose Allergy Hives Verified 04/20/18 11:31 [From Splenda (sucralose)] Home Meds: Home Meds Insulin Aspart [NovoLOG] 0 - 33 units SUBCUT TIDMEALS 06/11/16 [History] Insulin Glargine,Hum.Rec.Anlog [Toujeo Solostar] 80 units SQ BEDTIME 12/24/17 [ History] Rizatriptan Benzoate [Rizatriptan] 1 tab PO ASDIRECTED PRN 12/24/17 [History] Topiramate 1 tab PO DAILY 01/16/18 [History] Past Medical History HEENT History: Reports: Allergic Rhinitis, Impaired Vision Cardiovascular History: Reports: Arrhythmia, High Cholesterol Gastrointestinal History: Reports: Chronic Diarrhea, GERD Genitourinary History: Reports: UTI, Recurrent Musculoskeletal History: Reports: Fracture Neurological History: Reports: Concussion, Migraines, Neuropathy, Diabetic Psychiatric History: Reports: ADHD, Anxiety Endocrine/Metabolic History: Reports: Diabetes, Type I, Diabetes, Type II, Obesity/BMI 30+ - Infectious Disease History Infectious Disease History: Reports: Chicken Pox - Past Surgical History Head Surgeries/Procedures: Reports: None HEENT Surgical History: Reports: None Cardiovascular Surgical History: Reports: Cardiac Ablation GI Surgical History: Reports: None Endocrine Surgical History: Reports: None Neurological Surgical History: Reports: None Musculoskeletal Surgical History: Reports: None Dermatological Surgical History: Reports: None Social & Family History - Family History Family Medical History: Noncontributory - Tobacco Use Smoking Status *Q: Former Smoker Used Tobacco, but Quit: Yes Month/Year Tobacco Last Used: 12/2017 - Caffeine Use Caffeine Use: Reports: Soda, Tea - Recreational Drug Use Recreational Drug Use: No - Living Situation & Occupation Living situation: Reports: Single Occupation: Employed ED ROS GENERAL - Review of Systems Review Of Systems: ROS reveals no pertinent complaints other than HPI. ED EXAM, GENERAL - Physical Exam Exam: See Below Exam Limited By: No Limitations General Appearance: Alert, WD/WN, No Apparent Distress Throat/Mouth: Normal Inspection Neck: Normal Inspection Respiratory/Chest: Lungs Clear Cardiovascular: Normal Peripheral Pulses, Regular Rate, Rhythm, No Murmur Extremities: Normal Inspection Course - Vital Signs Last Recorded V/S: Last Vital Signs Temp 35.3 C 04/20/18 11:30 Pulse 88 04/20/18 11:30 Resp 19 04/20/18 11:30 BP 133/76 04/20/18 11:30 Pulse Ox 98 04/20/18 11:30 - Orders/Labs/Meds Orders: Active Orders 24 hr Category Date Time Status EKG Documentation Completion [RC] ASDIRECTED Care 04/20/18 11:57 Active EKG 12 Lead [EK] Urgent Ther 04/20/18 11:57 Ordered - Re-Assessments/Exams Free Text/Narrative Re-Assessment/Exam: 04/20/18 14:10 EKG shows a normal sinus rhythm at 87 beats per minutes borderline left axis deviation normal ST and T waves Free Text/Narrative Re-Assessment/Exam: 04/20/18 14:11 The case was discussed with Ms. Dorsey, a nurse practitioner working with the air surveillance operator at [facility] in [place]. She recommended that he be placed on a monitor whether Holter monitor or ambulatory event monitor. She also recommended that if this pain seemed to be worsening that a limited echocardiogram would be indicated. I discussed this with Dr. Greenfield and he will see him in the clinic at 4 PM today. Departure - Departure Time of Disposition: 13:29 Disposition: Home, Self-Care 01 Condition: Fair Clinical Impression: Heart palpitations Instructions: Palpitations, [id number] Referrals: Gregory Casillas CONSULTANT [Primary Care Provider] - Forms: ED Department Discharge Additional Instructions: See Dr. Greenfield in clinic at 4 PM - My Orders Last 24 Hours: My Active Orders 04/20/18 11:57 EKG Documentation Completion [RC] ASDIRECTED EKG 12 Lead [EK] Urgent - Assessment/Plan Last 24 Hours: My Active Orders 04/20/18 11:57 EKG Documentation Completion [RC] ASDIRECTED EKG 12 Lead [EK] Urgent
== END 2018-04-20 13:36 | disposition home or self-care (01) ==
LOC: JP.ED 11:15
DX: R00.2 Palpitations (principal); E78.00 Pure hypercholesterolemia, unspecified; E10.40 Type 1 diabetes mellitus with diabetic neuropathy, unspecified; Z87.891 Personal history of nicotine dependence; Z88.1 Allergy status to other antibiotic agents; Z88.0 Allergy status to penicillin; Z88.8 Allergy status to other drugs, medicaments and biological substances; Z98.890 Other specified postprocedural states
CPT/HCPCS: 93005; 99285-25

== ENCOUNTER 2018-06-01 06:35 | Day surgery (SDC) | payer MEDICAID ==
[2018-06-01] MEDS ORDERED: Bupivacaine 0.5% 50 ML MDV ONE (06:51)
[2018-06-01] MEDS ORDERED: Lidocaine 1% with EPINEPHrine 1:100,000 50 ML MDV ONE (06:51)
[2018-06-01] MEDS ORDERED: Sodium Chloride 0.9% 1,000 ML IV SCH (07:30)
[2018-06-01] MEDS ORDERED: Clindamycin Phosphate 900 MG in Sodium Chloride 0.9% 100 ML IV ONE (08:00)
[2018-06-01] MEDS ORDERED: Ropivacaine 60 ML, Dexamethasone 8 MG, EPINEPHrine 0.4 MG, Sodium Chloride 0.9% 17.6 ML NERVRT SCH ×4 (08:45)
[2018-06-01] MEDS ORDERED: Midazolam 1 MG/ML 2 ML SDV ONE (09:15)
[2018-06-01] MEDS ORDERED: Propofol 200 MG/20 ML SDV ONE ×2 (09:15→09:20)
[2018-06-01] MEDS ORDERED: fentaNYL 100 MCG/2 ML SDV ONE (09:15)
[2018-06-01] MEDS ORDERED: hydrOXYzine HCl 100 MG/2 ML SDV IM ONE (09:23)
[2018-06-01] MEDS ORDERED: fentaNYL 100 MCG/2 ML SDV IVPUSH ONE (09:33)
[2018-06-01] MEDS ORDERED: Acetaminophen/HYDROcodone 325-10 MG Tab PO PRN (10:50)
[2018-06-01] MEDS ORDERED: Acetaminophen/HYDROcodone 325-5 MG Tab PO PRN (11:04)
[2018-06-01 11:17] VITALS: BP 137/76
--- NOTE | 2018-06-01 15:26 | OR ---
DATE OF PROCEDURE: 06/01/2018 PROCEDURE: Transversus abdominis plane blocks, bilaterally. COMPLICATION: None. PRINT CUTTER: None. INDICATIONS: Pain control for right inguinal hernia. RISKS: Risks, benefits, alternatives, and limitations including, but not limited to infection, bleeding, and injury to abdominal structures were explained to the patient who wished to proceed. PROCEDURE IN DETAIL: The patient was placed in supine position. The right side was addressed first. Transversus plane was readily identified and approximately 80% solution was injected under direct ultrasound guidance. Left side was then performed in same manner, same fashion, same technique, in the same sequence, using the same equipment, approximately 80% was injected on that side also. The patient tolerated the procedure well. Norberto Esquivel MD /[id number]
--- NOTE | 2018-06-01 15:38 | OR ---
DATE OF PROCEDURE: 06/01/2018 PROCEDURE: Right inguinal hernia repair, open. COMPLICATIONS: None. LAPEL STITCHER: None. ANESTHESIA: MAC. RISKS: Risks, benefits, alternatives, and limitations including, but not limited to infection, bleeding, perforation, and injury to blood vessels, testicles, intestines, and other risks not listed here were explained to the patient who wished to proceed. DESCRIPTION OF PROCEDURE: The patient was placed in supine position. A curvilinear incision was made in the standard fashion approximately 5 cm in size in proximity to the pubic bone. This was then carried down with electrocautery to the external oblique aponeurosis which was then opened with a 15 blade. Dissection was commenced. The cord structure was able to be isolated along with the hernia defect. It was noted to be a direct inguinal hernia. This was able to be reduced without difficulty. An extra-large plug and patch was then placed filling in approximately 1 cm locations. This was around the cord, but loosely approximated around the cord. This was stitched and approximated to the pubic symphysis also. This was then irrigated. The external oblique aponeurosis was closed with 3-0 Vicryl, subcutaneous tissues were closed with 4-0 Vicryl, and the skin was closed with 4-0 Vicryl. Dermabond was applied. The patient tolerated the procedure well. Norberto Esquivel MD /[id number]
== END 2018-06-01 12:02 | disposition home or self-care (01) ==
LOC: JP.SDS 06:35
PROVIDERS: ATTEND Surgery
DX: K40.90 Unilateral inguinal hernia, without obstruction or gangrene, not specified as recurrent (principal); E11.9 Type 2 diabetes mellitus without complications; Z79.4 Long term (current) use of insulin
CPT/HCPCS: 49505; 64488; A9270; C1781; J0171; J1100; J2250; J2704; J2795; J3010; J3410; J3490; J7030; J7050

== ENCOUNTER 2019-02-17 14:05 | Emergency (ER) | payer OTHER ==
[2019-02-17 14:30] VITALS: BP 141/93; PULSE 95
--- NOTE | 2019-02-17 14:57 | EDM.PDOC ---
ED HPI GENERAL MEDICAL PROBLEM - General Chief Complaint: ENT Problem Stated Complaint: MOUTH PAIN FROM TOOTH EXRACTION Time Seen by Provider: 02/17/19 14:40 Source of Information: Reports: Patient, Old Records History Limitations: Reports: No Limitations - History of Present Illness INITIAL COMMENTS - FREE TEXT/NARRATIVE: 28 yo male had several teeth extracted recently. Is taking ibuprofen. Was prescribed Tylenol #3 that was not sufficient so this was switched to hydrocodone which has also not been sufficient. He has had oxycodone in the past that made him itchy. His next appt with the dentist is on 02/25. Is taking clindamycin currently. No fever or facial swelling. 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: NSAIDS, Other (see below) (hydrocodone) - Related Data Allergies Allergy/AdvReac Type Severity Reaction Status Date / Time acetaminophen [From Percocet] Allergy Itching Verified 02/17/19 14:21 amoxicillin Allergy Hives Verified 02/17/19 14:21 cephalexin monohydrate Allergy Swollen Verified 02/17/19 14:21 [From Keflex] Tongue oxycodone Allergy Itching Verified 02/17/19 14:21 Penicillins Allergy Hives Verified 02/17/19 14:21 pravastatin Allergy Abdominal Verified 02/17/19 14:21 Pain sucralose Allergy Hives Verified 02/17/19 14:21 [From Splenda (sucralose)] Home Meds: Home Meds Insulin Aspart [NovoLOG] 0 - 33 units SUBCUT TIDMEALS 06/11/16 [History] Insulin Glargine,Hum.Rec.Anlog [Toujeo Solostar] 80 units SQ BEDTIME 12/24/17 [ History] Rizatriptan Benzoate [Rizatriptan] 1 tab PO ASDIRECTED PRN 12/24/17 [History] Dulaglutide [Trulicity] 0.75 mg SQ Q7D 05/31/18 [History] Gabapentin [Neurontin] 200 mg PO TID 05/31/18 [History] Clindamycin HCl 1 tab PO TID 02/17/19 [History] HYDROmorphone [Dilaudid] 2 mg PO Q4H PRN #10 tab 02/17/19 [Rx] Hydrocodone/Acetaminophen [Hydrocodon-Acetaminophen 5-325] 1 tab PO Q6HR PRN [History] metFORMIN [Glucophage] 1 tab PO DAILY 02/17/19 [History] Past Medical History HEENT History: Reports: Allergic Rhinitis, Impaired Vision Cardiovascular History: Reports: Arrhythmia, High Cholesterol, Other (See Below) Other Cardiovascular History: paroxysmal supraventricular tachycardia Gastrointestinal History: Reports: Chronic Diarrhea, GERD Genitourinary History: Reports: UTI, Recurrent Musculoskeletal History: Reports: Fracture Neurological History: Reports: Concussion, Migraines, Neuropathy, Diabetic Psychiatric History: Reports: ADHD, Anxiety Endocrine/Metabolic History: Reports: Diabetes, Type I, Diabetes, Type II, Obesity/BMI 30+ Hematologic History: Reports: Polycythemia Dermatologic History: Reports: Other (See Below) Other Dermatologic History: scabbed area on left calf - Infectious Disease History Infectious Disease History: Reports: Chicken Pox - Past Surgical History Head Surgeries/Procedures: Reports: None HEENT Surgical History: Reports: None Cardiovascular Surgical History: Reports: Cardiac Ablation GI Surgical History: Reports: None Endocrine Surgical History: Reports: None Neurological Surgical History: Reports: None Musculoskeletal Surgical History: Reports: None Dermatological Surgical History: Reports: None Social & Family History - Family History Family Medical History: Noncontributory - Tobacco Use Smoking Status *Q: Never Smoker - Caffeine Use Caffeine Use: Reports: Soda, Tea - Living Situation & Occupation Living situation: Reports: Single Occupation: Employed ED ROS ENT - Review of Systems Review Of Systems: Comprehensive ROS is negative, except as noted in HPI. HEENT: Reports: Dental Pain ED EXAM, ENT - Physical Exam Exam: See Below Exam Limited By: No Limitations General Appearance: Alert, WD/WN, No Apparent Distress Eye Exam: Bilateral Eye: Normal Inspection Ears: Normal External Exam, Normal Canal, Hearing Grossly Normal, Normal TMs Nose: Normal Inspection, No Blood Mouth/Throat: Normal Lips, Other (multiple recent dental extractions, sutures still in place. ). No: Normal Teeth Head: Atraumatic, Normocephalic. No: Facial Ecchymosis, Facial Swelling Neck: Normal Inspection, Supple, Non-Tender. No: Lymphadenopathy (R), Lymphadenopathy (L) Neurological: Alert, Oriented, CN II-XII Intact, Normal Cognition, No Motor/ Sensory Deficits Psychiatric: Normal Affect, Normal Mood Skin: Warm, Dry, Intact, Normal Color, No Rash Course - Vital Signs Last Recorded V/S: Last Vital Signs Temp 36.0 C 02/17/19 14:28 Pulse 95 02/17/19 14:28 Resp 14 02/17/19 14:28 BP 141/93 H 02/17/19 14:28 Pulse Ox 98 02/17/19 14:28 Departure - Departure Time of Disposition: 14:56 Disposition: Home, Self-Care 01 Condition: Fair Clinical Impression: Pain, dental - Discharge Information *PRESCRIPTION DRUG MONITORING PROGRAM REVIEWED*: No *COPY OF PRESCRIPTION DRUG MONITORING REPORT IN PATIENT YOLI: No Prescriptions: HYDROmorphone [Dilaudid] 2 mg PO Q4H PRN #10 tab PRN Reason: Pain Referrals: PCP,None [Primary Care Provider] - Additional Instructions: Substitute hydromorphone as directed for your hydrocodone. You may take acetaminophen with this AND ibuprofen. F/U this week with your family doctor if not getting adequate relief with this med or if you run out and can't get by with the other pain meds already prescribed. Stay on your clindamycin.
== END 2019-02-17 15:09 | disposition home or self-care (01) ==
LOC: JP.ED 14:05
DX: K08.89 Other specified disorders of teeth and supporting structures (principal); E78.00 Pure hypercholesterolemia, unspecified; E66.9 Obesity, unspecified; E10.40 Type 1 diabetes mellitus with diabetic neuropathy, unspecified; Z88.6 Allergy status to analgesic agent; Z88.0 Allergy status to penicillin; Z88.1 Allergy status to other antibiotic agents; Z88.8 Allergy status to other drugs, medicaments and biological substances; Z79.4 Long term (current) use of insulin; Z68.30 Body mass index [BMI] 30.0-30.9, adult
CPT/HCPCS: 99282

== ENCOUNTER 2019-08-10 12:13 | Emergency (ER) | payer OTHER ==
--- NOTE | 2019-08-10 12:56 | EDM.PDOC ---
ED HPI GENERAL MEDICAL PROBLEM - General Chief Complaint: Skin Complaint Stated Complaint: LT FOOT PAIN Time Seen by Provider: 08/10/19 12:40 Source of Information: Reports: Patient History Limitations: Reports: No Limitations - History of Present Illness Onset: Gradual Duration: Day(s): (4) Location: Reports: Lower Extremity, Left Quality: Reports: Burning Severity: Moderate Context: Reports: Other (The blister on the bottom of his foot and subsequently the foot became red swollen and painful) Associated Symptoms: Denies: Fever/Chills, Shortness of Breath - Related Data Allergies Allergy/AdvReac Type Severity Reaction Status Date / Time acetaminophen [From Percocet] Allergy Itching Verified 02/17/19 14:21 amoxicillin Allergy Hives Verified 02/17/19 14:21 cephalexin monohydrate Allergy Swollen Verified 02/17/19 14:21 [From Keflex] Tongue hydromorphone [From Dilaudid] Allergy Itching Verified 08/10/19 12:32 oxycodone Allergy Itching Verified 02/17/19 14:21 Penicillins Allergy Hives Verified 02/17/19 14:21 pravastatin Allergy Abdominal Verified 02/17/19 14:21 Pain sucralose Allergy Hives Verified 02/17/19 14:21 [From Splenda (sucralose)] Home Meds: Home Meds Insulin Aspart [NovoLOG] 0 - 33 units SUBCUT TIDMEALS 06/11/16 [History] Insulin Glargine,Hum.Rec.Anlog [Toujeo Solostar] 80 units SQ BEDTIME 12/24/17 [ History] Rizatriptan Benzoate [Rizatriptan] 1 tab PO ASDIRECTED PRN 12/24/17 [History] Gabapentin [Neurontin] 200 mg PO TID 05/31/18 [History] metFORMIN [Glucophage] 1 tab PO DAILY 02/17/19 [History] Doxycycline [Vibramycin] 100 mg PO BID 7 Days #14 cap 08/10/19 [Rx] Glimepiride 1 tab PO BID 08/10/19 [History] Past Medical History HEENT History: Reports: Allergic Rhinitis, Impaired Vision Cardiovascular History: Reports: Arrhythmia, High Cholesterol, Other (See Below) Other Cardiovascular History: paroxysmal supraventricular tachycardia Gastrointestinal History: Reports: Chronic Diarrhea, GERD Genitourinary History: Reports: UTI, Recurrent Musculoskeletal History: Reports: Fracture Neurological History: Reports: Concussion, Migraines, Neuropathy, Diabetic Psychiatric History: Reports: ADHD, Anxiety Endocrine/Metabolic History: Reports: Diabetes, Type I, Diabetes, Type II, Obesity/BMI 30+ Hematologic History: Reports: Polycythemia Dermatologic History: Reports: Other (See Below) Other Dermatologic History: scabbed area on left calf - Infectious Disease History Infectious Disease History: Reports: Chicken Pox - Past Surgical History Head Surgeries/Procedures: Reports: None HEENT Surgical History: Reports: None Cardiovascular Surgical History: Reports: Cardiac Ablation GI Surgical History: Reports: None Endocrine Surgical History: Reports: None Neurological Surgical History: Reports: None Musculoskeletal Surgical History: Reports: None Dermatological Surgical History: Reports: None Social & Family History - Family History Family Medical History: Noncontributory - Caffeine Use Caffeine Use: Reports: Soda, Tea - Living Situation & Occupation Living situation: Reports: Single Occupation: Employed ED ROS GENERAL - Review of Systems Review Of Systems: See Below Constitutional: Denies: Fever, Chills, Fatigue, Night Sweats Respiratory: Reports: No Symptoms Cardiovascular: Reports: No Symptoms Neurological: Reports: No Symptoms ED EXAM, SKIN/RASH Exam: See Below Exam Limited By: No Limitations General Appearance: Alert, WD/WN, No Apparent Distress Respiratory/Chest: No Respiratory Distress Back Exam: Full Range of Motion Extremities: Other (Dorsal surface of left foot reveals a small wound consistent with a blister that the patient "popped" next to the ball of the foot. In general the foot is slightly swollen with erythema extending up to the arch. It is warm to touch. There is no draining wound.) Neurological: Alert, Oriented Associated features: Warmth, Tenderness, Swelling, Inflammation Course - Vital Signs Last Recorded V/S: Last Vital Signs Temp 36.8 C 08/10/19 12:39 Pulse 99 08/10/19 12:39 Resp 17 08/10/19 12:39 BP 127/77 08/10/19 12:39 Pulse Ox 100 08/10/19 12:39 Departure - Departure Time of Disposition: 12:50 Disposition: Home, Self-Care 01 Condition: Good Clinical Impression: Cellulitis Qualifiers: Site of cellulitis: extremity Site of cellulitis of extremity: lower extremity Laterality: left Qualified Code(s): L03.116 - Cellulitis of left lower limb - Discharge Information Prescriptions: Doxycycline [Vibramycin] 100 mg PO BID 7 Days #14 cap Instructions: Cellulitis, Adult Referrals: Luz Acevedo PA-C [Primary Care Provider] - Forms: ED Department Discharge Additional Instructions: Start doxycycline as soon as possible. Try to rest the involved foot for the next 2 days. Warm soaks of the foot at least 3 times a day Sepsis Event Note - Evaluation Sepsis Screening Result: No Definite Risk - Focused Exam Vital Signs: Vital Signs Temp Pulse Resp BP Pulse Ox 08/10/19 12:39 36.8 C 99 17 127/77 100 08/10/19 12:23 36.8 C 99 17 127/77 100 Date Exam was Performed: 08/10/19 Time Exam was Performed: 12:58
== END 2019-08-10 13:07 | disposition home or self-care (01) ==
LOC: JP.ED 12:13
CPT/HCPCS: 99283

== ENCOUNTER 2022-02-18 23:43 | Emergency (ER) | payer SELFPAY ==
[2022-02-19 00:02] VITALS: BP 138/73; PULSE 100
[2022-02-19] MEDS ORDERED: Ketorolac 30 MG/ML SDV IM ONE (00:09)
[2022-02-19] MEDS ORDERED: Methocarbamol 500 MG Tab PO ONE (00:40)
[2022-02-19] MEDS ORDERED: Lidocaine 5% 700 MG Patch TRDERM ONE (00:40)
== END 2022-02-19 01:36 | disposition home or self-care (01) ==
LOC: JP.ED 23:43
DX: M54.50 Low back pain, unspecified (principal); S39.012D Strain of muscle, fascia and tendon of lower back, subsequent encounter; E78.00 Pure hypercholesterolemia, unspecified; E11.9 Type 2 diabetes mellitus without complications; E66.9 Obesity, unspecified; Z68.33 Body mass index [BMI] 33.0-33.9, adult; Z88.6 Allergy status to analgesic agent; Z88.0 Allergy status to penicillin; Z88.5 Allergy status to narcotic agent; Z88.8 Allergy status to other drugs, medicaments and biological substances; Z79.899 Other long term (current) drug therapy; X50.0XXA Overexertion from strenuous movement or load, initial encounter; Y92.69 Other specified industrial and construction area as the place of occurrence of the external cause
CPT/HCPCS: 72100; 96372; 99283; A9270; J1885

== ENCOUNTER 2022-03-01 03:52 | Emergency (ER) | payer SELFPAY ==
[2022-03-01 05:34] VITALS: BP 145/90; PULSE 75
== END 2022-03-01 05:33 | disposition home or self-care (01) ==
LOC: JP.ED 03:52
DX: R00.2 Palpitations (principal); R07.89 Other chest pain; E78.00 Pure hypercholesterolemia, unspecified; K21.9 Gastro-esophageal reflux disease without esophagitis; E11.40 Type 2 diabetes mellitus with diabetic neuropathy, unspecified; E66.9 Obesity, unspecified; Z68.35 Body mass index [BMI] 35.0-35.9, adult; Z87.891 Personal history of nicotine dependence; Z88.0 Allergy status to penicillin; Z88.6 Allergy status to analgesic agent; Z88.1 Allergy status to other antibiotic agents; Z88.5 Allergy status to narcotic agent; Z88.8 Allergy status to other drugs, medicaments and biological substances; Z79.4 Long term (current) use of insulin; Z79.899 Other long term (current) drug therapy
CPT/HCPCS: 93005; 99284

== ENCOUNTER 2022-10-30 09:09 | Emergency (ER) | payer MEDICAID ==
[2022-10-30 10:03] VITALS: BP 157/93; PULSE 110
== END 2022-10-30 11:44 | disposition home or self-care (01) ==
LOC: JP.ED 09:09
DX: L03.211 Cellulitis of face (principal); E11.9 Type 2 diabetes mellitus without complications; E66.9 Obesity, unspecified; K21.9 Gastro-esophageal reflux disease without esophagitis; Z68.34 Body mass index [BMI] 34.0-34.9, adult; E78.00 Pure hypercholesterolemia, unspecified; Z86.16 Personal history of COVID-19; Z88.0 Allergy status to penicillin; Z88.1 Allergy status to other antibiotic agents; Z88.5 Allergy status to narcotic agent; Z88.8 Allergy status to other drugs, medicaments and biological substances; Z79.899 Other long term (current) drug therapy
CPT/HCPCS: 99283

== ENCOUNTER 2022-12-23 06:53 | Emergency (ER) | payer MEDICAID ==
[2022-12-23 07:14] VITALS: BP 119/83; PULSE 88
[2022-12-23 07:24] LABS: HEMATOCRIT 49.9 % (38.4-49.7); MEAN CORPUSCULAR HEMOGLOBIN 29.4 pg (31.6-35.5); MEAN CORPUSCULAR HGB CONC 36.5 g/dL (31.6-35.5); MEAN CORPUSCULAR VOLUME 80.5 fL (81.4-99.0); RED BLOOD CELL COUNT 6.2 M/uL (4.14-5.76); WHITE BLOOD CELL COUNT,WBC 6.8 K/uL (3.2-11.0)
[2022-12-23 07:25] LABS: CARBOXYHEMOGLOBIN 2.1 % (0.0-1.6); METHEMOGLOBIN 0.7 %; O2 SATURATION VENOUS 31.6; OXYHEMOGLOBIN 30.7 %; PCO2 VENOUS 51.5 mm/Hg; TOTAL HEMOGLOBIN 19.1 g/dL (13.5-18.0)
[2022-12-23 07:27] LABS: BASE EXCESS VENOUS 4.4 mm/L; BICARBONATE,VENOUS 30.6 mmol/L; PH,VENOUS 7.391 (7.350-7.450)
[2022-12-23 07:29] LABS: HEMOGLOBIN 18.2 g/dL (12.9-16.9)
[2022-12-23 07:45] LABS: APPEARANCE,URINE CLEAR (CLEAR); BILIRUBIN,URINE NEGATIVE (NEGATIVE); COLOR,URINE YELLOW (YELLOW); GLUCOSE,URINE 500 mg/dL (NEGATIVE); KETONES,URINE TRACE mg/dL (NEGATIVE); LEUKOCYTE ESTERASE,URINE NEGATIVE (NEGATIVE); NITRITE,URINE NEGATIVE (NEGATIVE); OCCULT BLOOD,URINE TRACE-LYSED (NEGATIVE); PH,URINE 5.5 (5.0-8.0); PROTEIN,URINE >=300 mg/dL (NEGATIVE); UROBILINOGEN,URINE 0.2 EU/dL (0.2-1.0)
[2022-12-23 07:47] LABS: A/G RATIO 1.2 (1.2-2.2); ALANINE AMINOTRANSFERASE,ALT 30 U/L (12-78); ALBUMIN 4.4 g/dL (3.4-5.0); ALKALINE PHOSPHATASE 76 U/L (46-116); ASPARTATE AMNIOTRANSFERASE,AST 15 U/L (15-37); BILIRUBIN TOTAL 0.9 mg/dL (0.2-1.0); BLOOD UREA NITROGEN,BUN 22 mg/dL (7-18); CALCIUM 9.6 mg/dL (8.5-10.1); CARBON DIOXIDE,CO2 32 mmol/L (21-32); CHLORIDE,CL 97 mmol/L (100-108); CREATININE 1.6 mg/dL (0.8-1.3); EST CRCL DRUG DOSING (CG) 93.01 mL/min; ESTIMATED GFR 59 mL/min (>60); GLUCOSE RANDOM 276 mg/dL (74-106); POTASSIUM,K 3.9 mmol/L (3.6-5.2); PROTEIN TOTAL,TP 8.2 g/dL (6.4-8.2); SODIUM,NA 135 mmol/L (140-148)
[2022-12-23 07:48] LABS: ANION GAP 9.9 mmol/L (5.0-14.0)
[2022-12-23 07:52] LABS: AMORPHOUS SEDIMENT,URINE NOT SEEN; AMPHETAMINES SCREEN, URINE NEGATIVE (NEGATIVE); BACTERIA,URINE NOT SEEN; BARBITURATE SCREEN,URINE NEGATIVE (NEGATIVE); BENZODIAZEPINES SCREEN,URINE NEGATIVE (NEGATIVE); EPITHELIAL CELLS,URINE MODERATE; METHADONE SCREEN, URINE NEGATIVE (NEGATIVE); METHAMPHETAMINES SCREEN, URINE NEGATIVE (NEGATIVE); MUCUS,URINE FEW; OXYCODONE SCREEN,URINE NEGATIVE (NEGATIVE); PROPOXYPHENE SCREEN,URINE NEGATIVE (NEGATIVE); RBC,URINE 0-5 (0-5); THC SCREEN,URINE 50 NG/ML NEGATIVE (NEGATIVE); WBC,URINE 0-5 (0-5)
[2022-12-23] MEDS ORDERED: 50% Dextrose in Water 50 ML Syringe IVPUSH PRN (08:00)
[2022-12-23] MEDS ORDERED: Glucagon,Human Recombinant 1 MG Vial IM PRN (08:00)
[2022-12-23] MEDS ORDERED: Insulin Regular, Human 100 Units/ML 3 ML Vial SUBCUT ONE (08:00)
== END 2022-12-23 09:33 | disposition home or self-care (01) ==
LOC: JP.ED 06:53
DX: E11.65 Type 2 diabetes mellitus with hyperglycemia (principal); E78.00 Pure hypercholesterolemia, unspecified; E66.9 Obesity, unspecified; Z86.16 Personal history of COVID-19; Z79.4 Long term (current) use of insulin; Z79.899 Other long term (current) drug therapy; Z88.0 Allergy status to penicillin; Z88.5 Allergy status to narcotic agent; Z88.8 Allergy status to other drugs, medicaments and biological substances; Z88.1 Allergy status to other antibiotic agents
CPT/HCPCS: 36415; 80053; 80305-QW; 81001; 82009; 82150; 82803; 82947; 83605; 83690; 85027; 99284; J1815-GY

== ENCOUNTER 2023-02-07 20:33 | Emergency (ER) | payer MEDICAID ==
[2023-02-07 22:08] VITALS: BP 157/88; PULSE 81
[2023-02-07 22:53] LABS: BASOPHILS ABSOLUTE AUTO 0.04 K/uL (0.00-0.10); BASOPHILS PERCENT AUTO 0.5 % (0.1-1.3); EOSINOPHILS ABSOLUTE AUTO 0.14 K/uL (0.00-0.40); EOSINOPHILS PERCENT AUTO 1.8 % (0.0-5.4); HEMATOCRIT 44.8 % (38.4-49.7); HEMOGLOBIN 15.9 g/dL (12.9-16.9); IMMATURE GRAN PERCENT AUTO 0.3 % (0.0-0.7); LYMPHOCYTES ABSOLUTE AUTO 1.96 K/uL (0.8-3.3); LYMPHOCYTES PERCENT AUTO 25.5 % (11.4-47.7); MEAN CORPUSCULAR HEMOGLOBIN 29.4 pg (31.6-35.5); MEAN CORPUSCULAR HGB CONC 35.5 g/dL (31.6-35.5); MEAN CORPUSCULAR VOLUME 82.8 fL (81.4-99.0); MONOCYTES ABSOLUTE AUTO 0.57 K/uL (0.20-0.90); MONOCYTES PERCENT AUTO 7.4 % (3.3-12.6); NEUTROPHILS ABSOLUTE AUTO 4.95 K/uL (1.0-7.6); NEUTROPHILS PERCENT AUTO 64.5 % (40.0-78.1); PLATELET COUNT,PLT 206 K/uL (130-375); RED BLOOD CELL COUNT 5.41 M/uL (4.14-5.76); WHITE BLOOD CELL COUNT,WBC 7.7 K/uL (3.2-11.0)
[2023-02-07 22:54] LABS: IMMATURE GRAN ABSOLUTE AUTO 0.02 K/uL (0.00-0.23)
== END 2023-02-07 23:10 | disposition home or self-care (01) ==
LOC: JP.ED 20:33
DX: S71.102A Unspecified open wound, left thigh, initial encounter (principal); L56.8 Other specified acute skin changes due to ultraviolet radiation; E78.00 Pure hypercholesterolemia, unspecified; K21.9 Gastro-esophageal reflux disease without esophagitis; E11.9 Type 2 diabetes mellitus without complications; E66.9 Obesity, unspecified; Z86.16 Personal history of COVID-19; Z68.36 Body mass index [BMI] 36.0-36.9, adult; Z79.4 Long term (current) use of insulin; Z79.899 Other long term (current) drug therapy; Z88.0 Allergy status to penicillin; Z88.6 Allergy status to analgesic agent; Z88.1 Allergy status to other antibiotic agents; Z88.5 Allergy status to narcotic agent; Z88.8 Allergy status to other drugs, medicaments and biological substances; Z91.018 Allergy to other foods; X58.XXXA Exposure to other specified factors, initial encounter
CPT/HCPCS: 12001; 36415; 85025; 99283

== ENCOUNTER 2023-10-25 14:04 | Inpatient (IN) | payer MEDICAID ==
[2023-10-25 15:14] LABS: BASOPHILS ABSOLUTE AUTO 0.04 K/uL (0.00-0.10); BASOPHILS PERCENT AUTO 0.6 % (0.1-1.3); EOSINOPHILS ABSOLUTE AUTO 0.11 K/uL (0.00-0.40); EOSINOPHILS PERCENT AUTO 1.6 % (0.0-5.4); HEMATOCRIT 47.9 % (38.4-49.7); HEMOGLOBIN 17.6 g/dL (12.9-16.9); IMMATURE GRAN ABSOLUTE AUTO 0.02 K/uL (0.00-0.23); IMMATURE GRAN PERCENT AUTO 0.3 % (0.0-0.7); LYMPHOCYTES ABSOLUTE AUTO 1.11 K/uL (0.8-3.3); LYMPHOCYTES PERCENT AUTO 16.3 % (11.4-47.7); MEAN CORPUSCULAR HEMOGLOBIN 29.7 pg (31.6-35.5); MEAN CORPUSCULAR HGB CONC 36.7 g/dL (31.6-35.5); MEAN CORPUSCULAR VOLUME 80.8 fL (81.4-99.0); MONOCYTES ABSOLUTE AUTO 0.34 K/uL (0.20-0.90); NEUTROPHILS ABSOLUTE AUTO 5.21 K/uL (1.0-7.6); NEUTROPHILS PERCENT AUTO 76.2 % (40.0-78.1); PLATELET COUNT,PLT 169 K/uL (130-375); RED BLOOD CELL COUNT 5.93 M/uL (4.14-5.76); WHITE BLOOD CELL COUNT,WBC 6.8 K/uL (3.2-11.0)
[2023-10-25] MEDS: Sodium Chloride 0.9% 1,000 ML IV SCH ×2 (15:15→16:39)
[2023-10-25 15:37] LABS: A/G RATIO 0.8 (1.2-2.2); ALANINE AMINOTRANSFERASE,ALT 17 U/L (12-78); ALBUMIN 3.2 g/dL (3.4-5.0); ALKALINE PHOSPHATASE 92 U/L (46-116); ASPARTATE AMNIOTRANSFERASE,AST 10 U/L (15-37); BILIRUBIN TOTAL 0.5 mg/dL (0.2-1.0); BLOOD UREA NITROGEN,BUN 15 mg/dL (7-18); CALCIUM 8.9 mg/dL (8.5-10.1); CHLORIDE,CL 99 mmol/L (100-108); ESTIMATED GFR 45 mL/min (>60); GLUCOSE RANDOM 396 mg/dL (74-106); POTASSIUM,K 4.6 mmol/L (3.6-5.2); PROTEIN TOTAL,TP 7.1 g/dL (6.4-8.2); SODIUM,NA 134 mmol/L (140-148)
[2023-10-25 15:46] LABS: ANION GAP 25.6 mmol/L (5.0-14.0); CARBON DIOXIDE,CO2 14 mmol/L (21-32)
[2023-10-25 15:58] LABS: BASE EXCESS ARTERIAL -16.5 mm/L; CARBOXYHEMOGLOBIN 1.9 % (0.0-1.6); O2 SATURATION ARTERIAL 97.2 % (95.0-98.0); OXYHEMOGLOBIN 94.4 %; PCO2 ARTERIAL 24.4 mmHg (35.0-42.0); PO2 ARTERIAL 90.6 mmHg (75.0-100.0); TOTAL HEMOGLOBIN 17.6 g/dL (13.5-18.0)
[2023-10-25 16:00] LABS: BICARBONATE,ARTERIAL 9.8 mmol/L (22.0-26.0)
[2023-10-25] MEDS ORDERED: Potassium Chloride 10% 20 MEQ/15 ML Soln 15 ML UD Cup PO PRN (16:22)
[2023-10-25] MEDS ORDERED: 50% Dextrose in Water 50 ML Syringe IVPUSH PRN ×2 (16:22→16:32)
[2023-10-25] MEDS ORDERED: Sodium Phosphate 60 MMOLE in Sodium Chloride 0.9% 250 ML IV PRN (16:22)
[2023-10-25] MEDS ORDERED: Potassium Chloride 20 MEQ in Premix Bag 1 BAG IV PRN (16:22)
[2023-10-25] MEDS ORDERED: Glucagon,Human Recombinant 1 MG Vial IM PRN (16:32)
[2023-10-25] MEDS ORDERED: Polyethylene Glycol 3350 Powder 17 GM Packet PO PRN (16:47)
[2023-10-25] MEDS ORDERED: RIZATRIPTAN BENZOATE 5 MG PO PRN (16:47)
[2023-10-25] MEDS ORDERED: Ondansetron 4 MG/2 ML SDV IV PRN (16:47)
[2023-10-25] MEDS ORDERED: Sodium Chloride 0.9% 10 ML Syringe FLUSH PRN (16:47)
[2023-10-25] MEDS: Insulin Regular, Human 100 Units/ML 3 ML Vial IVPUSH ONE (16:49)
[2023-10-25 16:57] LABS: CALCIUM 9.3 mg/dL (8.5-10.1); CREATININE 1.8 mg/dL (0.8-1.3); MAGNESIUM 1.9 mg/dL (1.8-2.4); PHOSPHORUS 3.7 mg/dL (2.5-4.9); POTASSIUM,K 4.2 mmol/L (3.6-5.2)
[2023-10-25 16:58] LABS: ANION GAP 27.2 mmol/L (5.0-14.0)
[2023-10-25] MEDS: Insulin Regular in 0.9 % NACL 100 ML IV SCH (17:00)
[2023-10-25] MEDS ORDERED: Rizatriptan ODT 10 MG Tab PO PRN (17:09)
[2023-10-25] MEDS: Potassium Chloride 20 MEQ in Premix Bag 1 BAG IV ONE (17:11)
[2023-10-25] MEDS: Acetaminophen 325 MG Tab PO PRN (17:29)
[2023-10-25] MEDS: Sodium Chloride 0.9% 2,000 ML IV PRN (18:33)
[2023-10-25] MEDS: Dextrose 5%-0.45% NaCl 1,000 ML IV PRN (19:14)
[2023-10-25 20:49] LABS: ANION GAP 21.8 mmol/L (5.0-14.0); CALCIUM 8.1 mg/dL (8.5-10.1); CREATININE 1.9 mg/dL (0.8-1.3); EST CRCL DRUG DOSING (CG) 75.65 mL/min; POTASSIUM,K 3.8 mmol/L (3.6-5.2)
[2023-10-25] MEDS ORDERED: Non-Formulary Medication 1 Each (Losartan/Hydrochlorothiazide [Hyzaar 100-12.5 Tablet] 1 E PO SCH (21:00)
[2023-10-25] MEDS ORDERED: Non-Formulary Medication 1 Each (Dapagliflozin Propanediol [Farxiga] 5 MG Tablet) PO SCH (21:00)
[2023-10-25] MEDS ORDERED: FLUoxetine 20 MG Cap PO SCH (21:00)
[2023-10-25] MEDS: Hydrochlorothiazide 12.5 MG Cap PO SCH (21:14)
[2023-10-25] MEDS: atorvaSTATin 10 MG Tab PO SCH (21:14)
[2023-10-25] MEDS: Losartan 50 MG Tab PO SCH (21:15)
[2023-10-25 22:51] LABS: MAGNESIUM 1.6 mg/dL (1.8-2.4); POTASSIUM,K 3.8 mmol/L (3.6-5.2)
[2023-10-25] MEDS: Magnesium Sulfate/Water 50 ML IV PRN (23:20)
[2023-10-26 01:00] LABS: ANION GAP 17.4 mmol/L (5.0-14.0); CREATININE 1.8 mg/dL (0.8-1.3); EST CRCL DRUG DOSING (CG) 79.85 mL/min; POTASSIUM,K 3.4 mmol/L (3.6-5.2)
[2023-10-26] MEDS: Potassium Chloride 20 MEQ in Premix Bag 1 BAG IV PRN (01:26)
[2023-10-26 04:35] LABS: HEMATOCRIT 40.9 % (38.4-49.7); HEMOGLOBIN 15.3 g/dL (12.9-16.9); MEAN CORPUSCULAR HEMOGLOBIN 29.7 pg (31.6-35.5); MEAN CORPUSCULAR HGB CONC 37.4 g/dL (31.6-35.5); MEAN CORPUSCULAR VOLUME 79.4 fL (81.4-99.0); RED BLOOD CELL COUNT 5.15 M/uL (4.14-5.76); WHITE BLOOD CELL COUNT,WBC 5.1 K/uL (3.2-11.0)
[2023-10-26 04:55] LABS: CALCIUM 8.1 mg/dL (8.5-10.1); CREATININE 1.8 mg/dL (0.8-1.3); EST CRCL DRUG DOSING (CG) 79.85 mL/min; MAGNESIUM 1.9 mg/dL (1.8-2.4); POTASSIUM,K 3.3 mmol/L (3.6-5.2)
[2023-10-26 04:57] LABS: ANION GAP 16.3 mmol/L (5.0-14.0)
[2023-10-26] MEDS ORDERED: Potassium Chloride 20 MEQ in Premix Bag 1 BAG IV PRN (07:29)
[2023-10-26] MEDS: Potassium Chloride 10% 20 MEQ/15 ML Soln 15 ML UD Cup PO PRN ×2 (08:19→10:28)
[2023-10-26] MEDS: Empagliflozin 10 MG Tab PO SCH (08:43)
[2023-10-26 09:02] LABS: CREATININE 1.7 mg/dL (0.8-1.3); EST CRCL DRUG DOSING (CG) 84.55 mL/min; POTASSIUM,K 3.7 mmol/L (3.6-5.2)
[2023-10-26 09:04] LABS: ANION GAP 16.7 mmol/L (5.0-14.0)
[2023-10-26 10:52] LABS: MAGNESIUM 1.8 mg/dL (1.8-2.4); PHOSPHORUS 2.9 mg/dL (2.5-4.9); POTASSIUM,K 3.9 mmol/L (3.6-5.2)
[2023-10-26 12:51] LABS: CALCIUM 8.4 mg/dL (8.5-10.1); CREATININE 1.7 mg/dL (0.8-1.3); EST CRCL DRUG DOSING (CG) 84.55 mL/min; POTASSIUM,K 3.8 mmol/L (3.6-5.2)
[2023-10-26 13:22] LABS: ANION GAP 14.8 mmol/L (5.0-14.0)
[2023-10-26 16:58] LABS: CALCIUM 8.6 mg/dL (8.5-10.1); CREATININE 1.7 mg/dL (0.8-1.3); EST CRCL DRUG DOSING (CG) 84.55 mL/min; MAGNESIUM 1.9 mg/dL (1.8-2.4); PHOSPHORUS 2.7 mg/dL (2.5-4.9)
[2023-10-26 20:50] LABS: CALCIUM 8.7 mg/dL (8.5-10.1); CREATININE 1.8 mg/dL (0.8-1.3); EST CRCL DRUG DOSING (CG) 79.85 mL/min
[2023-10-26] MEDS: Amitriptyline 25 MG Tab PO SCH (21:04)
[2023-10-26] MEDS: Sertraline 50 MG Tab PO SCH (21:08)
[2023-10-26] MEDS: Metoprolol Succinate 25 MG Tab.ER PO SCH (21:08)
[2023-10-26] MEDS: Insulin Glargine,Human Rec. Analog 100 Units/ML 3 ML Pen SUBCUT SCH (21:10)
[2023-10-26] MEDS: IVABRADINE HCL 5 MG PO SCH (22:30)
[2023-10-26 22:49] LABS: MAGNESIUM 1.9 mg/dL (1.8-2.4); PHOSPHORUS 2.7 mg/dL (2.5-4.9); POTASSIUM,K 3.9 mmol/L (3.6-5.2)
[2023-10-27 00:55] LABS: CALCIUM 8.6 mg/dL (8.5-10.1); CREATININE 1.8 mg/dL (0.8-1.3); EST CRCL DRUG DOSING (CG) 79.85 mL/min; POTASSIUM,K 3.5 mmol/L (3.6-5.2)
[2023-10-27 01:04] LABS: ANION GAP 15.5 mmol/L (5.0-14.0)
[2023-10-27 04:59] LABS: CALCIUM 8.4 mg/dL (8.5-10.1); CREATININE 1.9 mg/dL (0.8-1.3); EST CRCL DRUG DOSING (CG) 75.65 mL/min; MAGNESIUM 1.7 mg/dL (1.8-2.4); PHOSPHORUS 2.7 mg/dL (2.5-4.9); POTASSIUM,K 3.7 mmol/L (3.6-5.2)
[2023-10-27 05:02] LABS: ANION GAP 13.7 mmol/L (5.0-14.0)
[2023-10-27] MEDS: Magnesium Sulfate/Water 50 ML ONE (05:42)
[2023-10-27 08:51] LABS: CALCIUM 8.7 mg/dL (8.5-10.1); CREATININE 1.8 mg/dL (0.8-1.3); EST CRCL DRUG DOSING (CG) 79.85 mL/min
[2023-10-27] MEDS: Insulin Lispro 100 Unit/ML 3 ML KwikPen SUBCUT SCH (12:44)
[2023-10-27 14:28] VITALS: BP 128/77
[2023-10-27 14:31] VITALS: PULSE 86
== END 2023-10-27 15:37 | disposition home or self-care (01) | DRG 638 ==
LOC: JP.ED 14:04 → JP.ICU 16:26
PROVIDERS: ADMIT Hospitalist; ATTEND Hospitalist
PROC: 4A033R1 Measurement of Arterial Saturation, Peripheral, Percutaneous Approach (ICD-10-PCS; principal; 2023-10-25)
DX: E11.10 Type 2 diabetes mellitus with ketoacidosis without coma (principal); N17.9 Acute kidney failure, unspecified; H54.7 Unspecified visual loss; E78.00 Pure hypercholesterolemia, unspecified; K52.9 Noninfective gastroenteritis and colitis, unspecified; K21.9 Gastro-esophageal reflux disease without esophagitis; F41.9 Anxiety disorder, unspecified; G43.909 Migraine, unspecified, not intractable, without status migrainosus; E66.9 Obesity, unspecified; E11.42 Type 2 diabetes mellitus with diabetic polyneuropathy; Z88.0 Allergy status to penicillin; Z91.030 Bee allergy status; Z88.8 Allergy status to other drugs, medicaments and biological substances; Z79.4 Long term (current) use of insulin; Z79.899 Other long term (current) drug therapy; Z87.440 Personal history of urinary (tract) infections; Z87.81 Personal history of (healed) traumatic fracture; Z68.33 Body mass index [BMI] 33.0-33.9, adult; Z86.16 Personal history of COVID-19
CPT/HCPCS: 36415; 36600; 80048; 80053; 82009; 82803; 82947; 83690; 83735; 84100; 84132; 85025; 85027; 93005; 96360; 99223; 99232; 99238; 99285; 99285-25; A9270-GY; J1815; J1815-GY; J3475; J3480; J7030; J7799

== ENCOUNTER 2024-06-18 21:40 | Emergency (ER) | payer MEDICAID ==
[2024-06-18 21:56] VITALS: BP 141/87; PULSE 98
[2024-06-18 22:27] LABS: BASOPHILS ABSOLUTE AUTO 0.03 K/uL (0.00-0.10); BASOPHILS PERCENT AUTO 0.4 % (0.1-1.3); EOSINOPHILS ABSOLUTE AUTO 0.11 K/uL (0.00-0.40); EOSINOPHILS PERCENT AUTO 1.4 % (0.0-5.4); HEMATOCRIT 42.1 % (38.4-49.7); HEMOGLOBIN 15.3 g/dL (12.9-16.9); IMMATURE GRAN ABSOLUTE AUTO 0.03 K/uL (0.00-0.23); IMMATURE GRAN PERCENT AUTO 0.4 % (0.0-0.7); LYMPHOCYTES ABSOLUTE AUTO 2.08 K/uL (0.8-3.3); LYMPHOCYTES PERCENT AUTO 25.7 % (11.4-47.7); MEAN CORPUSCULAR HEMOGLOBIN 29.4 pg (31.6-35.5); MEAN CORPUSCULAR HGB CONC 36.3 g/dL (31.6-35.5); MEAN CORPUSCULAR VOLUME 80.8 fL (81.4-99.0); MONOCYTES ABSOLUTE AUTO 0.55 K/uL (0.20-0.90); MONOCYTES PERCENT AUTO 6.8 % (3.3-12.6); NEUTROPHILS ABSOLUTE AUTO 5.29 K/uL (1.0-7.6); NEUTROPHILS PERCENT AUTO 65.3 % (40.0-78.1); PLATELET COUNT,PLT 245 K/uL (130-375); RED BLOOD CELL COUNT 5.21 M/uL (4.14-5.76); WHITE BLOOD CELL COUNT,WBC 8.1 K/uL (3.2-11.0)
[2024-06-18 22:40] LABS: CREATININE 1.8 mg/dL (0.8-1.3); EST CRCL DRUG DOSING (CG) 81.92 mL/min; POTASSIUM,K 4.1 mmol/L (3.6-5.2)
== END 2024-06-18 22:55 | disposition home or self-care (01) ==
LOC: JP.ED 21:40
DX: T81.31XA Disruption of external operation (surgical) wound, not elsewhere classified, initial encounter (principal); E78.00 Pure hypercholesterolemia, unspecified; E11.9 Type 2 diabetes mellitus without complications; Z86.16 Personal history of COVID-19; Z88.0 Allergy status to penicillin; Z91.018 Allergy to other foods; Z91.030 Bee allergy status; Z88.1 Allergy status to other antibiotic agents; Z88.8 Allergy status to other drugs, medicaments and biological substances; Z88.5 Allergy status to narcotic agent; Z79.4 Long term (current) use of insulin; Z79.899 Other long term (current) drug therapy; Z79.85 Long-term (current) use of injectable non-insulin antidiabetic drugs
CPT/HCPCS: 36415; 80048; 85025; 99283